=== PATIENT | male | born 1950 | race Caucasian/White ===

== ENCOUNTER 2017-11-11 21:10 | Emergency (ER) | payer OTHER, MEDICARE ==
--- NOTE | 2017-11-11 21:41 | EDPHY ---
H & P Stated Complaint: R eye burning Time Seen by Provider: 11/11/17 21:40 HPI/ROS: CHIEF COMPLAINT: Right eye pain HISTORY OF PRESENT ILLNESS: The patient presents to the ED with complaints of right eye pain. The patient does were contact lenses. He denies any history of trauma. He denies any complaints of vision loss. The patient denies additional acute complaints. REVIEW OF SYSTEMS: A comprehensive 10 point review of systems is otherwise negative aside from elements mentioned in the history of present illness. Source: Patient Exam Limitations: No limitations - Personal History Current Tetanus Diphtheria and Acellular Pertussis (TDAP): Yes - Medical/Surgical History Hx Asthma: No Hx Chronic Respiratory Disease: No Hx Diabetes: No Hx Cardiac Disease: No Hx Renal Disease: No Hx Cirrhosis: No Hx Alcoholism: No Hx HIV/AIDS: No Hx Splenectomy or Spleen Trauma: No - Social History Smoking Status: Never smoked - Physical Exam Exam: Visual Acuity: noted from Nurse's notes. Pupils: equal round and reactive to light EOMI Skin: no proptosis, no periorbital erythema or swelling, no vesicles Conjunctivae: not injected, no discharge Cornea: exam with fluorescein shows an area of corneal avulsion at the 2 o' clock position Anterior chamber: normal, no hyphema or hypopyon Constitutional: Initial Vital Signs Temperature (C) 36.8 C 11/11/17 21:17 Heart Rate 69 11/11/17 21:17 Respiratory Rate 18 11/11/17 21:17 Blood Pressure 148/76 H 11/11/17 21:17 O2 Sat (%) 97 11/11/17 21:17 O2 Delivery Mode Room Air Allergies/Adverse Reactions: Penicillins Allergy (Verified 08/20/11 05:11) Home Medications: Medication Instructions Recorded Aspirin [Aspirin 81mg] 81 mg PO DAILY 08/20/11 Azithromycin 250 mg PO DAILY #4 tablet 08/20/11 oxyCODONE/APAP 5/325 [Percocet 5 mg PO Q4-6PRN PRN #10 tab 08/20/11 5/325] Medical Decision Making ED Course/Re-evaluation: The patient presents to the ED with a corneal injury in the setting of contact lens use. The patient's contact lens was removed. The patient will be started on Ocuflox eyedrops. 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 Newton. He is advised to not wear contact lenses until cleared to do so by Ophthalmology. Differential Diagnosis: Differential diagnosis considered includes corneal abrasion, corneal ulcer, corneal injury, conjunctivitis - Data Points Medications Given: Discontinued Medications Fluorescein Sodium/Benoxinate HCl (Flurox) 2 drops OP EDNOW ONE Stop: 11/11/17 21:53 Last Admin: 11/11/17 21:53 Dose: 1 drop Proparacaine HCl (Alcaine 0.5%) 1 drops OP EDNOW ONE Stop: 11/11/17 21:52 Last Admin: 11/11/17 21:53 Dose: 2 drop Departure - Departure Disposition: Home, Routine, Self-Care Clinical Impression: Corneal abrasion due to contact lens Qualifiers: Laterality: right Qualified Code(s): H18.821 - Corneal disorder due to contact lens, right eye Condition: Good Instructions: Corneal Abrasion (ED) Additional Instructions: 1. Please apply 1 Ocuflox eye drop to the right eye 5 times a day for next week. 2. Please call Dr. Newton to schedule a follow-up visit in the next 1-2 days. 3. Do not wear contacts until cleared to do so by Dr. Newton 4. Tylenol and ibuprofen as needed for pain. Referrals: Andrade Newton MD [Medical Doctor] - As per Instructions
[2017-11-11] MEDS ORDERED: FLUORESCEIN SOD/BENOXINATE HCL 20 DROPS/ML OPHT.BTL ONE (21:50)
[2017-11-11] MEDS ORDERED: PROPARACAINE 0.5% 15 ML OPHT DROP OP ONE (21:51)
[2017-11-11] MEDS ORDERED: PROPARACAINE 0.5% 15 ML OPHT DROP ONE (21:51)
[2017-11-11] MEDS ORDERED: FLUORESCEIN SOD/BENOXINATE HCL 20 DROPS/ML OPHT.BTL OP ONE (21:52)
[2017-11-11 21:59] VITALS: BP 140/83
[2017-11-11] MEDS ORDERED: OFLOXACIN 0.3% SOLN PREPACK OPHT.BTL TAKEHOME ONE (21:59)
== END 2017-11-11 22:09 | disposition home or self-care (01) ==
DX: H18.821 Corneal disorder due to contact lens, right eye (principal); Z79.82 Long term (current) use of aspirin